=== PATIENT | female | born 1995 ===

== ENCOUNTER → 2019-01-01 23:17 | Outpatient (REF) | payer BC, SELFPAY ==
[2019-01-02 00:15] LABS: Add Manual Diff / Slide Review NO; Alanine Aminotransferase 18 IU/L (9-52); Albumin 4.5 g/dL (3.5-5.0); Albumin Globulin Ratio 1.5 (1.0-2.8); Alkaline Phosphatase 42 U/L (38-126); Aspartate Aminotransferase 27 IU/L (14-36); Basophils Absolute Auto 100 /uL (0-100); Basophils Percent Auto 0.8 % (0-2); Bilirubin Total 0.5 mg/dL (0.2-1.3); Blood Urea Nitrogen 12 mg/dL (7-17); Calcium 9.7 mg/dL (8.4-10.2); Carbon Dioxide 26 mmol/L (22-32); Chloride 101 mmol/L (98-107); Eosinophils Absolute Auto 0 /uL (0-450); Eosinophils Percent Auto 0.3 % (2-4); Estimated Glomerular Filt Rate > 60.0 mL/min (>60); Globulin 3.1 g/dL (1.7-4.1); Glucose 77 mg/dL (70-100); HEMOLYSIS 29 (0-50); Hematocrit 44.6 % (36-46); Hemoglobin 14.9 g/dL (12.0-16.0); Lymphocytes Absolute Auto 2600 /uL (1100-4500); Lymphocytes Percent Auto 35.4 % (25-40); Mean Corpuscular HGB Conc 33.3 % (30-36); Mean Corpuscular Hemoglobin 31.7 PG (26-34); Monocytes Absolute Auto 300 /uL (0-900); Monocytes Percent Auto 4.1 % (3-14); Neutrophils Absolute Auto 4400 /uL (1500-7000); Neutrophils Percent Auto 59.4 % (50-75); Platelet Count 278 X10^3/uL (150-400); Potassium 4.4 mmol/L (3.4-5.1); Red Cell Distribution Width 13.4 % (11.6-14.8); Sodium 138 mmol/L (137-145); Total Protein 7.6 g/dL (6.3-8.2); White Blood Cell Count 7.5 X10^3/uL (4.5-11.0)
[2019-01-02 00:46] LABS: TSH w/ Reflex to FT4 3.46 uIU/mL (0.47-4.68)
[2019-01-02 00:50] LABS: Ferritin 21.4 ng/mL (6.27-137)
[2019-01-05 13:42] LABS: Anti Thyroglobulin Antibody < 1 IU/mL (< 2); Thyroid Peroxidase Antibodies 1 IU/mL (< 9)
[2019-01-05 14:08] LABS: EBV Virus IgM Ab < 36.00 U/mL (< 36.00); EVB Early IgG < 9.00 U/mL (< 9.00)
== END ==
LOC: LAB 23:17
PROVIDERS: Visit Provider Family Medicine
DX: G52.2 Disorders of vagus nerve (principal); R42 Dizziness and giddiness; R53.83 Other fatigue; I95.1 Orthostatic hypotension; Z13.89 Encounter for screening for other disorder
CPT/HCPCS: 36415; 80053; 82728; 84443; 85025; 86376; 86663; 86664; 86665; 86800